=== PATIENT | female | born 1960 | race Caucasian/White ===

== ENCOUNTER 2017-04-24 22:59 | Emergency (ER) | payer BC, OTHER ==
--- NOTE | 2017-04-24 23:52 | ER Document Report ---
ED General - General Chief Complaint: Foot Injury Stated Complaint: FOOT INJURY Time Seen by Provider: 04/24/17 23:31 Notes: Patient is a 56-year-old female presents with complaint of pain over the lateral aspect left foot. She was standing on a stool and went to change the filter out of a event. She says she can felt stool and then on her foot and rolled. She has pain mainly over the lateral aspect of her left foot. She has been swelling there which she says has decreased some. She denies any pain into her knee or leg. No other complaints at this time. She denies any other injuries. She is not on blood thinners. TRAVEL OUTSIDE OF THE [place] IN LAST 30 DAYS: No - Related Data Allergies/Adverse Reactions: Amino Acid 10% Comb No.7 [From Premasol 10 %] Allergy (Verified 04/24/17 23:03) Amino Acid 6% Comb No.1 [From Premasol 6 %] Allergy (Verified 04/24/17 23:03) meperidine HCl [From Demerol] Allergy (Verified 04/24/17 23:03) Past Medical History - Social History Smoking Status: Unknown if Ever Smoked Frequency of alcohol use: None Drug Abuse: None Family History: Reviewed & Not Pertinent Patient has suicidal ideation: No Patient has homicidal ideation: No Renal/ Medical History: Denies: Hx Peritoneal Dialysis GI Medical History: Reports: Hx Gastroesophageal Reflux Disease Past Surgical History: Reports: Hx Pacemaker - January 2014 - Immunizations Hx Diphtheria, Pertussis, Tetanus Vaccination: Yes Review of Systems - Review of Systems Notes: My Normal Review Basic REVIEW OF SYSTEMS: CONSTITUTIONAL : Denies fever, chills, or sweats. Denies recent illness. MUSCULOSKELETAL: Left foot pain SKIN: Denies rash or skin lesions. NEUROLOGICAL: Denies altered mental status or loss of consciousness. ALL OTHER SYSTEMS REVIEWED AND NEGATIVE. Physical Exam - Vital signs Vitals: Temp Pulse Resp BP Pulse Ox 98.1 F 86 20 113/69 96 04/24/17 23:05 04/24/17 23:05 04/24/17 23:05 04/24/17 23:05 04/24/17 23:05 - Notes Notes: General Appearance: Well nourished, alert, cooperative, no acute distress, mild obvious discomfort. Vitals: reviewed, See vital signs table. Extremities: , good pulses in all extremities, patient has bruising and swelling to the lateral aspect of left foot. No obvious bony deformity. She is able to move all her toes. Distal sensation intact. No pain to the ankle itself with palpation. No pain to the knee with palpation. Skin: warm, dry, appropriate color, no rash Neuro: speech clear, oriented x 3, normal affect, responds appropriately to questions. Sensation intact. Course - Re-evaluation Re-evalutation: 04/25/17 00:23 This is explained to the patient to follow-up treatment options for the foot fracture she then mentions that she now thinks that she may have syncopized. Patient says his third time in 2 weeks that she essentially passed out. She eats time is when she extends her head and looks up. She says she is not was happened. She had 12 of vertigo with it but she did not have vertigo this time. She does not have a family doctor. She denies any chest pain or shortness of breath associated with syncope. Will obtain a CTA of her neck to further evaluate being that these episodes occur with neck extension. 04/25/17 01:15 Patient has history of hives with IV contrast CT scans. Patient says she has had several CT scans with IV contrast. She says long she gets pretreated with Benadryl and medications that she will not have hives will not have any type of allergic reaction. We will pretreat the patient with Benadryl, solu-medrol, and Pepcid. Denies any history of difficulty swallowing, difficulty breathing, or facial swelling. 04/25/17 06:33 CT scan of the neck and head were negative. Is no evidence of vascular compromise. Informed patient that she probably need further workup. She does not have a primary care doctor so therefore I gave her a list of primary care doctors. She is safe to be discharged home and I feel that she is stable for outpatient workup. I informed her that she should not do any activities where she is having a look up for prolonged period time assist is apparently what triggers for syncopal episodes. She has had a tilt table test in the past. She said that is why she has the pacemaker. Pacemaker is not been firing her malfunctioning. She does have history of some possible disc disease in her neck. I told her she may need a repeat MRI in the near future. I also informed her that she is follow-up with orthopedist in regards to her foot. He did place her in a posterior short leg splint and give her crutches. Patient encouraged to return to ER if she has recurrence or worsening of her symptoms if she feels unwell. I did loosen the Shaheen wrap on the patient's mother speaks initially it was little bit tight. Patient now feels much improved. I informed her that she can also adjust the Shaheen wrap herself at home. Dictation of this chart was performed using voice recognition software; therefore, there may be some unintended grammatical errors. - Vital Signs Vital signs: Temp Pulse Resp BP Pulse Ox 98.3 F 82 17 109/61 95 04/25/17 03:24 04/25/17 03:24 04/25/17 03:24 04/25/17 03:24 04/25/17 03:24 - Laboratory Result Diagrams: 04/25/17 00:53 04/25/17 00:53 Laboratory results interpreted by me: 04/25/17 04/25/17 00:53 00:53 RDW 15.0 H BUN 22 H Est GFR (Non-Af Amer) 58 L Calcium 10.3 H Procedures - Immobilization Left Foot Pre-Proc Neuro Vasc Exam: Normal Immobilizer type: Short Leg Posterior Performed by: PCT Post-Proc Neuro Vasc Exam: Normal Discharge - Discharge Clinical Impression: Avulsion fracture of metatarsal bone of left foot Qualifiers: Encounter type: initial encounter Fracture type: closed Qualified Code(s): S92.302A - Fracture of unspecified metatarsal bone(s), left foot, initial encounter for closed fracture Syncope Qualifiers: Syncope type: unspecified Qualified Code(s): R55 - Syncope and collapse Condition: Good Disposition: HOME, SELF-CARE Instructions: Family Physicians / Practices Additional Instructions: Please wear the splint until cleared by the orthopedist. It is okay to loosen the shaheen wrap on the splint if you feel that it is too tight. Please call the orthopedist office for a close follow up appointment. It is okay to follow up with a drafter heating and ventilating instead if you prefer that over the orthopedist. Please return to the ER if you have numbness into your foot, worsening pain, or have any further concerns. Your CT scan of your neck shows no evidence of blockage of the arteries of your neck. CT scan of your head was normal as well. Please follow up with a primary care physician for further workup of your syncope. you may eventually need an MRI of your neck to rule out herniated discs. You may also need a tilt table test to further evaluate your syncope. Please try to avoid doing chores where you have to look up for a prolonged period of time. Return to the ER if you have recurrent syncopal episodes that occur despite not looking up or if you have any further concerns. Forms: Return to Work Referrals: GABRIELA PAREDES MD [ACTIVE STAFF] - Follow up in 3-5 days
--- NOTE | 2017-04-24 23:52 | RADIOLOGY REPORT (SQ) ---
EXAM DESCRIPTION: FOOT LEFT COMPLETE COMPLETED DATE/TIME: 04/24/2017 11:14 pm REASON FOR STUDY: left foot pain, fall. COMPARISON: None. NUMBER OF VIEWS: Three views. TECHNIQUE: AP, lateral and oblique radiographic images acquired of the left foot. LIMITATIONS: None. FINDINGS: MINERALIZATION: Normal. BONES: Small osseous fragment is seen lateral to the cuboid, suggestive of an avulsion fracture. SOFT TISSUES: Mild soft tissue swelling at the the fracture site. No radiopaque foreign body. IMPRESSION: Avulsion fracture at the lateral cuboid with mild overlying soft tissue swelling. TECHNICAL DOCUMENTATION: JOB ID: [id number] [place]-[id number] 2010 [employer]- All Rights Reserved
[2017-04-25] MEDS ORDERED: NORMAL SALINE 1000 ML 1,000 ML IV ONE (00:22)
[2017-04-25 01:06] LABS: ABSOLUTE EOSINOPHILS # (AUTO) 0.1 10^3/uL (0.0-0.6); ABSOLUTE MONOCYTES (AUTO) 0.6 10^3/uL (0.1-1.4); ABSOLUTE NEUT (AUTO) 3.6 10^3/uL (1.7-8.2); BASOPHILS % (AUTO) 0.8 % (0-2); EOSINOPHILS % (AUTO) 1.8 % (0-6); HEMATOCRIT 38.9 % (36.0-47.0); HEMOGLOBIN 13.2 g/dL (12.0-15.5); LYMPHOCYTES % (AUTO) 32.2 % (13-45); MEAN CORPUSCULAR HGB CONC 33.9 g/dL (32.0-36.0); MEAN CORPUSCULAR VOLUME 94 fl (80-97); MONOCYTES % (AUTO) 8.9 % (3-13); PLATELET COUNT 214 10^3/uL (150-450); RED BLOOD COUNT 4.12 10^6/uL (3.72-5.28); SEGMENTED NEUTROPHILS % (AUTO) 56.3 % (42-78); TOTAL CELLS COUNTED % (AUTO) 100 %; WHITE BLOOD COUNT 6.3 10^3/uL (4.0-10.5)
[2017-04-25] MEDS ORDERED: METHYLPREDNISOLONE INJ 125 MG/2 ML SDV IV ONE (01:12)
[2017-04-25] MEDS ORDERED: DIPHENHYDRAMINE HCL 50 MG/ML VIAL IV ONE (01:12)
[2017-04-25] MEDS ORDERED: FAMOTIDINE INJ/PF 20 MG/2 ML SDV IV ONE (01:12)
[2017-04-25 01:18] LABS: ANION GAP 6 (5-19); BLOOD UREA NITROGEN 22 mg/dL (7-20); CALCIUM 10.3 mg/dL (8.4-10.2); CARBON DIOXIDE 30 mmol/L (22-30); CHLORIDE 105 mmol/L (98-107); GLUCOSE 83 mg/dL (75-110); POTASSIUM 4.4 mmol/L (3.6-5.0); SODIUM 140.8 mmol/L (137-145)
--- NOTE | 2017-04-25 02:22 | RADIOLOGY REPORT (SQ) ---
EXAM DESCRIPTION: CTA HEAD COMPLETED DATE/TIME: 04/25/2017 2:08 am REASON FOR STUDY: recurrent syncope upon looking up COMPARISON: CT head 08/16/2010, CT angiogram neck 04/25/2017. TECHNIQUE: Post IV contrast scanning, thin section axial imaging through the brain to evaluate the a rterial structures. Source and MIP images are saved and reviewed on PACS. Advanced 3D imaging as volume-rendering, MIPs, SSD performed? yes All CT scanners at this facility use dose modulation, iterative reconstruction, and/or weight based d osing when appropriate to reduce radiation dose to as low as reasonably achievable (ALARA). [facility]: Dose Right [facility]: CareDose [facility]: Dose Right [facility]: Teradose 4D [facility]: InvestGlass CONTRAST TYPE AND DOSE: contrast/concentration: Isovue 370.00 mg/ml; Total Contrast Delivered: 70.0 ml; Total Saline Delivered: 60.0 ml RENAL FUNCTION: Creatinine 0.98. LIMITATIONS: None. FINDINGS: [place]: The anterior, middle, posterior cerebral arteries are all patent. No ev idence of aneurysm or focal stenosis. POSTERIOR CIRCULATION: The distal vertebral arteries are patent as is the basilar artery. No aneurysm . BRAIN: No enhancing lesions visualized. BONES: No depressed calvarial fracture. SINUSES: No air-fluid level. IMPRESSION: NO CTA EVIDENCE OF STENOSIS OR ANEURYSM OF THE [place]. TECHNICAL DOCUMENTATION: JOB ID: [id number] Quality ID # [id number]: Final reports with documentation of one or more dose reduction techniques (e.g., Au tomated exposure control, adjustment of the mA and/or kV according to patient size, use of iterative reconstruction technique) 2010 [employer]- All Rights Reserved
--- NOTE | 2017-04-25 02:31 | RADIOLOGY REPORT (SQ) ---
EXAM DESCRIPTION: CTA NECK COMPLETED DATE/TIME: 04/25/2017 2:08 am REASON FOR STUDY: recurrent syncope upon looking up. COMPARISON: CT angiogram head 04/25/2017. TECHNIQUE: Axial dynamic scanning technique with dynamic contrast enhancement through the extra-brazer crawler torch nial carotid and vertebral arteries. Multiplanar reconstruction. 3-D MIPS and Volume-rendered imag es acquired at the workstation and saved to PACS. Images are reviewed in soft tissue, bone, lung w indows. All CT scanners at this facility use dose modulation, iterative reconstruction, and/or weight based d osing when appropriate to reduce radiation dose to as low as reasonably achievable (ALARA). [facility]: Dose Right [facility]: CareDose [facility]: Dose Right [facility]: Teradose 4D [facility]: netTALK CONTRAST TYPE AND DOSE: 70 mL Isovue 370- low osmolar. RENAL FUNCTION: Creatinine 0.98. LIMITATIONS: None. FINDINGS: AORTIC ARCH: There is an aberrant right subclavian artery coursing posterior to the esopha migue. RIGHT CAROTIDS: Patent common, internal and external carotid arteries without suggestion of significa nt stenosis or irregular plaque. No dissection. RIGHT VERTEBRAL: Patent. No dissection. LEFT CAROTIDS: Patent common, internal and external carotid arteries without suggestion of significan t stenosis or irregular plaque. No dissection. LEFT VERTEBRAL: Patent. No dissection. OTHER: There is a left-sided pacemaker. OTHER: 3-D reconstructions confirm findings. IMPRESSION: NO CTA EVIDENCE OF SIGNIFICANT STENOSIS OR DISSECTION AT THE EXTRA-CRANIAL CAROTID AND V ERTEBRAL ARTERIES. ABERRANT RIGHT SUBCLAVIAN ARTERY. COMMENT: Quality ID #[id number]: Measurements of distal internal carotid diameter were used as the denomina tor for stenosis measurement. TECHNICAL DOCUMENTATION: JOB ID: [id number] Quality ID # [id number]: Final reports with documentation of one or more dose reduction techniques (e.g., Au tomated exposure control, adjustment of the mA and/or kV according to patient size, use of iterative reconstruction technique) 2010 [employer]- All Rights Reserved
[2017-04-25] MEDS ORDERED: HYDROCODONE/ACETAMINOPHEN 5-325 MG (6 TAB/ER DISP) PO PRN (03:01)
[2017-04-25 03:25] VITALS: BP 109/61
== END 2017-04-25 03:24 | disposition home or self-care (01) ==
LOC: ER 22:59
PROC: 2W3RX1Z Immobilization of Left Lower Leg using Splint (ICD-10-PCS; principal; 2017-04-24)
DX: S92.302A Fracture of unspecified metatarsal bone(s), left foot, initial encounter for closed fracture (principal); R55 Syncope and collapse; W17.89XA Other fall from one level to another, initial encounter; Y92.009 Unspecified place in unspecified non-institutional (private) residence as the place of occurrence of the external cause; Z91.041 Radiographic dye allergy status; Z95.0 Presence of cardiac pacemaker
CPT/HCPCS: 99284; 96361; 96374; 96375; 36415; 85025; 80048; 73630; 70496; 70498; 29515; J1200; J2930; J7030; S0028

== ENCOUNTER 2020-03-17 15:11 | Emergency (ER) | payer BC, OTHER ==
[2020-03-17] MEDS ORDERED: ONDANSETRON HCL INJ/PF 4 MG/2 ML SDV IV ONE (15:27)
--- NOTE | 2020-03-17 15:29 | ER Document Report ---
ED Medical Screen (RME) - General Stated Complaint: LOWER BACK PAIN Time Seen by Provider: 03/17/20 15:21 Information source: Patient Notes: Patient presents with left-sided abdominal pain and left flank pain for the past 2 weeks. Patient states she has had some nausea. Patient denies any fever. Patient states that she had recently been treated for umbilical drainage and mild UTI. Patient reports taking Bactrim for a week. I have greeted and performed a rapid initial assessment of this patient. A comprehensive ED assessment and evaluation of the patient, analysis of test results and completion of the medical decision making process will be conducted by additional ED providers. TRAVEL OUTSIDE OF THE [place] IN LAST 30 DAYS: No - Related Data Allergies/Adverse Reactions: Amino Acid 10% Comb No.7 [From Premasol 10 %] Allergy (Verified 04/24/17 23:03) Amino Acid 6% Comb No.1 [From Premasol 6 %] Allergy (Verified 04/24/17 23:03) meperidine HCl [From Demerol] Allergy (Verified 04/24/17 23:03) Past Medical History Renal/ Medical History: Denies: Hx Peritoneal Dialysis GI Medical History: Reports: Hx Gastroesophageal Reflux Disease Past Surgical History: Reports: Hx Pacemaker - January 2014 - Immunizations Hx Diphtheria, Pertussis, Tetanus Vaccination: Yes Physical Exam - Vital signs Vitals: Temp Pulse Resp BP Pulse Ox 97.6 F 68 20 123/90 H 96 03/17/20 15:12 03/17/20 15:12 03/17/20 15:12 03/17/20 15:12 03/17/20 15:12 - Back Back: CVA tenderness - Left Course - Vital Signs Vital signs: Temp Pulse Resp BP Pulse Ox 97.6 F 68 20 123/90 H 96 03/17/20 15:12 03/17/20 15:12 03/17/20 15:12 03/17/20 15:12 03/17/20 15:12
--- NOTE | 2020-03-17 16:54 | ER Document Report ---
ED General - General Chief Complaint: Abdominal Pain Stated Complaint: LOWER BACK PAIN Time Seen by Provider: 03/17/20 15:21 Mode of Arrival: Ambulatory Information source: Patient Notes: 59-year-old female presents with complaint of left-sided flank pain that has been ongoing for 1 week. Patient describes the pain as burning, constant with radiation to her left lower quadrant. Patient reports recent treatment for urinary tract infection with Bactrim. Patient does have a history of recurrent syncope and does have a pacemaker for this. She denies any recent episodes. Patient denies fever, chills, chest pain, shortness of breath, sore throat, hematuria, history of kidney stones. TRAVEL OUTSIDE OF THE [place] IN LAST 30 DAYS: No - HPI Onset: Last week Onset/Duration: Gradual, Persistent Quality of pain: Burning Severity: Moderate Associated symptoms: Nausea, Shortness of breath - Associated with pain. denies: Chest pain, Nonproductive cough, Productive cough, Fever, Vomiting Exacerbated by: Movement Relieved by: Remaining still Similar symptoms previously: Yes Recently seen / treated by doctor: Yes - Related Data Allergies/Adverse Reactions: Amino Acid 10% Comb No.7 [From Premasol 10 %] Allergy (Verified 03/17/20 15:36) Amino Acid 6% Comb No.1 [From Premasol 6 %] Allergy (Verified 03/17/20 15:36) meperidine HCl [From Demerol] Allergy (Verified 03/17/20 15:36) Past Medical History - General Information source: Patient - Social History Smoking Status: Never Smoker Chew tobacco use (# tins/day): No Frequency of alcohol use: None Drug Abuse: None Lives with: Friend Family History: Reviewed & Not Pertinent Patient has suicidal ideation: No Patient has homicidal ideation: No - Past Medical History Cardiac Medical History: Reports: Other - Vasovagal syncope Renal/ Medical History: Denies: Hx Peritoneal Dialysis GI Medical History: Reports: Hx Gastroesophageal Reflux Disease Past Surgical History: Reports: Hx Pacemaker - January 2014 - Immunizations Hx Diphtheria, Pertussis, Tetanus Vaccination: Yes Review of Systems - Review of Systems Notes: REVIEW OF SYSTEMS: CONSTITUTIONAL : Denies fever, chills, or sweats. Denies recent illness. Denies weight loss, recent hospitalizations. EENT: Denies visual changes, eye pain. Denies sore throat, oral lesions, difficulty swallowing. CARDIOVASCULAR: Denies chest pain. Denies palpitations. Denies lower extremity edema. RESPIRATORY: Denies cough. Denies shortness of breath, wheezing. GASTROINTESTINAL: +abdominal pain Denies vomiting, or diarrhea. Denies blood in vomitus, stools, or per rectum. Denies black, tarry stools. Denies constipation. GENITOURINARY: Denies difficulty urinating, painful urination, frequency, blood in urine, or vaginal discharge. MUSCULOSKELETAL: Denies neck pain or stiffness. Denies joint pain or swelling. SKIN: Denies rash, lesions or sores. HEMATOLOGIC : Denies easy bruising or bleeding. LYMPHATIC: Denies swollen glands. NEUROLOGICAL: Denies confusion or altered mental status. Denies loss of consciousness. Denies dizziness or lightheadedness. Denies headache. Denies weakness or paralysis. Denies problems difficulty with ambulation, slurred speech. Denies sensory loss, numbness, or tingling. Denies seizures. PSYCHIATRIC: Denies anxiety or stress. Denies depression, suicidal ideation, or homicidal ideation. Denies visual or auditory hallucinations. Physical Exam - Vital signs Vitals: Temp Pulse Resp BP Pulse Ox 97.6 F 68 20 123/90 H 96 03/17/20 15:12 03/17/20 15:12 03/17/20 15:12 03/17/20 15:12 03/17/20 15:12 - Notes Notes: PHYSICAL EXAMINATION: GENERAL: Well-appearing, well-nourished and in no acute distress. HEAD: Atraumatic, normocephalic. EYES: Pupils equal round and reactive to light, extraocular movements intact, conjunctiva are normal. ENT: Nares patent, oropharynx clear without exudates. Moist mucous membranes. NECK: Normal range of motion, supple without lymphadenopathy LUNGS: Breath sounds clear to auscultation bilaterally and equal. No wheezes rales or rhonchi. HEART: Regular rate and rhythm without murmurs ABDOMEN: Soft, nontender, nondistended abdomen. No guarding, no rebound. No masses appreciated. Female : deferred Musculoskeletal: Normal range of motion, no pitting or edema. No cyanosis. No CVA tenderness. Back pain not reproducible. NEUROLOGICAL: Cranial nerves grossly intact. Normal speech, normal gait. Normal sensory, motor exams PSYCH: Normal mood, normal affect. SKIN: Warm, Dry, normal turgor, no rashes or lesions noted. Course - Re-evaluation Re-evalutation: Laboratory 03/17/20 03/17/20 03/17/20 17:04 17:04 18:40 WBC 4.4 RBC 4.51 Hgb 14.0 Hct 42.8 MCV 95 MCH 31.1 MCHC 32.8 RDW 13.9 Plt Count 210 Lymph % (Auto) 44.0 Simpson % (Auto) 8.5 Eos % (Auto) 2.3 Baso % (Auto) 0.9 Absolute Neuts (auto) 2.0 Absolute Lymphs (auto) 1.9 Absolute Monos (auto) 0.4 Absolute Eos (auto) 0.1 Absolute Basos (auto) 0.0 Seg Neutrophils % 44.3 Sodium 135.2 L Potassium 5.0 Chloride 102 Carbon Dioxide 25 Anion Gap 8 BUN 13 Creatinine 1.08 Est GFR ( Amer) > 60 Est GFR (MDRD) Non-Af 52 L Glucose 95 Calcium 10.2 Total Bilirubin 0.7 Direct Bilirubin 0.1 Neonat Total Bilirubin Not Reportable Neonat Direct Bilirubin Not Reportable Neonat Indirect Bili Not Reportable AST 57 H ALT 54 H Alkaline Phosphatase 62 Total Protein 7.2 Albumin 4.6 Lipase 295.0 Urine Color YELLOW Urine Appearance CLEAR Urine pH 5.0 Ur Specific [place] 1.010 Urine Protein NEGATIVE Urine Glucose (UA) NEGATIVE Urine Ketones NEGATIVE Urine Blood NEGATIVE Urine Nitrite NEGATIVE Urine Bilirubin NEGATIVE Urine Urobilinogen NEGATIVE Ur Leukocyte Esterase NEGATIVE Urine WBC (Auto) 0 Urine RBC (Auto) 0 U Hyaline Cast (Auto) 6 Squamous Epi Cells Auto 1 Urine Mucus (Auto) OCC Urine Ascorbic Acid NEGATIVE Abdomen/Pelvis CT 03/17/20 17:11 IMPRESSION: No renal or ureteral calculi. No hydronephrosis. Moderate hepatic steatosis. Chest X-Ray 03/17/20 19:57 IMPRESSION: No acute findings in chest. Temp Pulse Resp BP Pulse Ox 97.6 F 68 20 123/90 H 96 03/17/20 15:12 03/17/20 15:12 03/17/20 15:12 03/17/20 15:12 03/17/20 15:12 03/17/20 17:42 ED Course History Patient evaluated. Vital signs were reviewed. Patient is a 59-year-old female who presents with 2 weeks of left-sided flank pain. Previous medical records and nursing notes reviewed. Patient does not appear toxic or dehydrated they are in no acute distress Exam Findings: Patient has a benign abdominal exam. Flank pain is not reproducible. She has no CVA tenderness. Lab Findings: CBC is without leukocytosis or anemia. CMP shows no electrolyte abnormalities and normal renal function. LFTs WNL. UA not consistent with UTI. . Patient Interventions/Monitor: CT of the abdomen pelvis was obtained and showed no evidence of ureteral calculi, hydronephrosis. Did show moderate hepatic steatosis. Chest x-ray was also obtained and within normal limits. Revaluation: After receiving IV morphine patient now rates her pain 5 out of 10 when initial pain rating was "20". Disposition: Discharge home. Patient was provided copies of her imaging that was performed today. She was advised to follow-up with her primary care physician. Patient was evaluated and treated as appropriate for the patient's presenting symptoms and complaint, with consideration of any critical or life threatening conditions that may be associated with their obtained history and exam as noted above. All results were discussed with patient and... Patient provided the opportunity to ask questions, and express concerns. Patient was educated on treatments based on their presumed diagnosis as noted above. At this time we will discharge the patient with return precautions and follow-up recommendations. Verbal discharge instructions given a the bedside. Medication warnings reviewed. Patient is in agreement with this plan and has verbalized understanding of return precautions. After careful consideration I feel that that patient can be safely discharged from the emergency department, they were advised to followup with a primary care physician in 2-3 days. Dictation on this chart was performed using voice recognition software and may result in unintended grammatical, spelling, syntax or errors. 03/17/20 21:24 - Vital Signs Vital signs: Temp Pulse Resp BP Pulse Ox 97.6 F 68 20 123/90 H 96 03/17/20 15:12 03/17/20 15:12 03/17/20 15:12 03/17/20 15:12 03/17/20 15:12 - Laboratory Results Result Diagrams: 03/17/20 17:04 03/17/20 17:04 Laboratory Results Interpreted: 03/17/20 17:04 Sodium 135.2 L Est GFR (MDRD) Non-Af 52 L AST 57 H ALT 54 H Critical Laboratory Results Reviewed: No Critical Results - Radiology Results Critical Radiology Results Reviewed: No Critical Results Discharge - Discharge Clinical Impression: Flank pain Condition: Good Disposition: HOME, SELF-CARE Instructions: Flank Pain ([facility]) Additional Instructions: Follow up with your [id number] hours for further care or return to the ED IMMEDIATELY if symptoms worsen or you have any concerns. If you cannot afford to follow up with your primary care physician a list of low cost clinics have been provided at the end of your discharge papers as well. Most prescribed medications have multiple side effects. The safest thing to do is when filling your prescription speak to your pharmacist regarding possible interactions with your normal home medications and over the counter medications such as Ibuprofen, Tylenol, Benadryl. If you experience any symptoms that cause you discomfort or concern you should discontinue the medication immediately and return to the emergency room or call your primary care physician. Prescriptions: Ketorolac Tromethamine [Toradol 10 mg Tablet] 10 mg PO Q6HP PRN #20 tablet PRN Reason: For Back Pain
[2020-03-17 17:36] LABS: ABSOLUTE EOSINOPHILS # (AUTO) 0.1 10^3/uL (0.0-0.6); ABSOLUTE LYMPHOCYTES (AUTO) 1.9 10^3/uL (0.5-4.7); ABSOLUTE MONOCYTES (AUTO) 0.4 10^3/uL (0.1-1.4); BASOPHILS % (AUTO) 0.9 % (0-2); EOSINOPHILS % (AUTO) 2.3 % (0-6); HEMATOCRIT 42.8 % (36.0-47.0); MEAN CORPUSCULAR HEMOGLOBIN 31.1 pg (27.0-33.4); MEAN CORPUSCULAR HGB CONC 32.8 g/dL (32.0-36.0); MEAN CORPUSCULAR VOLUME 95 fl (80-97); MONOCYTES % (AUTO) 8.5 % (3-13); PLATELET COUNT 210 10^3/uL (150-450); RED BLOOD COUNT 4.51 10^6/uL (3.72-5.28); RED CELL DISTRIBUTION WIDTH 13.9 % (11.5-14.0); SEGMENTED NEUTROPHILS % (AUTO) 44.3 % (42-78); TOTAL CELLS COUNTED % (AUTO) 100 %; WHITE BLOOD COUNT 4.4 10^3/uL (4.0-10.5)
--- NOTE | 2020-03-17 17:41 | RADIOLOGY REPORT (SQ) ---
EXAM DESCRIPTION: CT ABD/PELVIS NO ORAL OR IV IMAGES COMPLETED DATE/TIME: 03/17/2020 4:21 pm REASON FOR STUDY: left flank pain. COMPARISON: None. TECHNIQUE: CT scan of the abdomen and pelvis performed without intravenous or oral contrast. Images reviewed with lung, soft tissue, and bone windows. Reconstructed coronal and sagittal MPR images revi ewed. All images stored on PACS. All CT scanners at this facility use dose modulation, iterative reconstruction, and/or weight based d osing when appropriate to reduce radiation dose to as low as reasonably achievable (ALARA). [facility]: Dose Right [facility]: CareDose [facility]: Dose Right [facility]: Teradose 4D [facility]: Procurics RADIATION DOSE: CT Rad equipment meets quality standard of care and radiation dose reduction techniq ues were employed. CTDIvol: 6.3 mGy. DLP: 338 mGy-cm.mGy. LIMITATIONS: None. FINDINGS: LOWER CHEST: No significant findings. No nodules or infiltrates. NON-CONTRASTED LIVER, SPLEEN, ADRENALS: The liver has normal size and contour with moderate hepatic s teatosis. Evaluation of the parenchyma is limited without IV contrast. Spleen has normal size. No adrenal mass. PANCREAS: No masses. No peripancreatic inflammatory changes. GALLBLADDER: No identified stones by CT criteria. No inflammatory changes to suggest cholecystitis. RIGHT KIDNEY AND URETER: No suspicious masses. Assessment limited by lack of IV contrast. No signif icant calcifications. No hydronephrosis or hydroureter. LEFT KIDNEY AND URETER: No suspicious masses. Assessment limited by lack of IV contrast. No signifi cant calcifications. No hydronephrosis or hydroureter. AORTA AND RETROPERITONEUM: No aneurysm. No retroperitoneal masses or adenopathy. BOWEL AND PERITONEAL CAVITY: No obvious masses or inflammatory changes. No free fluid. APPENDIX: Normal. PELVIS, BLADDER, AND ABDOMINAL WALL:Uterus and ovaries have normal size. No adnexal mass. Calcified pelvic phleboliths. No pelvic adenopathy or free fluid. BONES: No significant findings. OTHER: No other significant finding. IMPRESSION: No renal or ureteral calculi. No hydronephrosis. Moderate hepatic steatosis. COMMENT: Quality ID # [id number]: Final reports with documentation of one or more dose reduction techniques (e.g., Automated exposure control, adjustment of the mA and/or kV according to patient size, use of iterative reconstruction technique) TECHNICAL DOCUMENTATION: JOB ID: [id number] 2010 [place]- All Rights Reserved Reading location - IP/workstation name: [email or web address]
[2020-03-17] MEDS ORDERED: MORPHINE SULFATE 10 MG/ML INJ IV ONE ×2 (17:45→20:06)
[2020-03-17 17:50] LABS: ALBUMIN 4.6 g/dL (3.5-5.0); ALKALINE PHOSPHATASE 62 U/L (38-126); ANION GAP 8 (5-19); ASPARTATE AMINO TRANSFERASE 57 U/L (14-36); BILIRUBIN,DIRECT 0.1 mg/dL (0.0-0.4); BILIRUBIN,TOTAL 0.7 mg/dL (0.2-1.3); BLOOD UREA NITROGEN 13 mg/dL (7-20); CALCIUM 10.2 mg/dL (8.4-10.2); CARBON DIOXIDE 25 mmol/L (22-30); CHLORIDE 102 mmol/L (98-107); GLUCOSE 95 mg/dL (75-110); TOTAL PROTEIN 7.2 g/dL (6.3-8.2)
[2020-03-17] MEDS ORDERED: KETOROLAC TROMETHAMINE INJ/PF 30 MG/1 ML SDV IV ONE (17:57)
[2020-03-17] MEDS ORDERED: RINGERS SOLUTION,LACTATED 1,000 ML IV ONE (18:38)
[2020-03-17 19:11] LABS: APPEARANCE,URINE CLEAR; BILIRUBIN,URINE NEGATIVE (NEGATIVE); COLOR,URINE YELLOW; GLUCOSE, URINE NEGATIVE (NEGATIVE); KETONES,URINE NEGATIVE (NEGATIVE); LEUKOCYTE ESTERASE,URINE NEGATIVE (NEGATIVE); NITRITE,URINE NEGATIVE (NEGATIVE); PROTEIN,URINE NEGATIVE (NEGATIVE); UROBILINOGEN,URINE NEGATIVE mg/dL (<2.0)
[2020-03-17] MEDS ORDERED: LIDOCAINE 5% (700 MG) TRANSDERMAL ADH..PATCH TP SCH (20:15)
--- NOTE | 2020-03-17 21:06 | RADIOLOGY REPORT (SQ) ---
EXAM DESCRIPTION: XR CHEST 2 VIEWS COMPLETED DATE/TME: 03/17/2020 20:38 CLINICAL HISTORY: 59 years, Female, pain COMPARISON: No recent studies. TECHNIQUE: PA and lateral views. FINDINGS: Pacemaker leads in good position. Cardiomediastinal silhouette is not enlarged. No acute lung or pleural abnormalities. IMPRESSION: No acute findings in chest.
[2020-03-17 22:30] VITALS: BP 117/65
== END 2020-03-17 22:30 | disposition home or self-care (01) ==
LOC: ER 15:11
DX: R10.9 Unspecified abdominal pain (principal); M54.5 Low back pain; R10.32 Left lower quadrant pain; R11.0 Nausea; R06.02 Shortness of breath; Z88.8 Allergy status to other drugs, medicaments and biological substances
CPT/HCPCS: 36415; 83690; 85025; 80053; 81001; 71046; 74176; J1885; J2270; J2405; J7120